=== PATIENT | female | born 1975 | race African-American/Black ===

== ENCOUNTER → 2019-08-18 | Emergency (ER) | payer OTHER ==
[2019-08-18 00:52] VITALS: BP 163/108
--- NOTE | 2019-08-18 07:56 | EKG ---
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1975 Requested By: Hemal Chatman Order Number: [id number] MD: Shay Pickering Measurements Intervals [place] Rate: 85 P: 45 DC: 153 QRS: -23 QRSD: 77 T: -9 QT: 403 QTc: 480 Interpretive Statements Sinus rhythm Probable left atrial enlargement Left ventricular hypertrophy Inferior infarct, age indeterminate Lateral leads are also involved Compared to ECG 04/14/2008 01:38:47 Electronically Signed On 08-18-2019 7:56:02 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
== END ==
LOC: ER 00:50
DX: R20.2 Paresthesia of skin (principal)

== ENCOUNTER 2020-03-07 05:17 | Emergency (ER) | payer OTHER ==
[~2020-03-07] VITALS: Ht 175.3 cm; Wt 97.5 kg
[2020-03-07 05:40] LABS: BASOPHILS 2.2 % (0.0-2.0); EOSINOPHILS 1.2 % (0.0-3.0); LYMPHOCYTES 33.6 % (24.0-44.0); MCHC 33.3 g/dL (28.0-37.0); MCV 84.2 fL (80.0-100.0); MONOCYTES 5.2 % (1.0-8.0); PLATELET COUNT 380 thou/uL (150-400); POLYS 57.8 % (36.0-66.0); RBC 4.27 mil/uL (4.20-5.00); RDW 15.6 % (10.5-14.5); WBC 6.9 thou/uL (4.0-11.0)
[2020-03-07 05:43] LABS: ANION GAP 12 mmol/L (7-16); BUN 5 mg/dL (7-18); CALCIUM 8.6 mg/dL (8.5-10.1); CHLORIDE 100 mmol/L (98-107); CO2 25 mmol/L (21-32); GLUCOSE 108 mg/dL (74-106); POTASSIUM 3.7 mmol/L (3.5-5.1); SODIUM 137 mmol/L (136-145)
[2020-03-07] MEDS ORDERED: NOHOMEMEDICATIONS (05:48)
[2020-03-07 05:52] LABS: TROPONIN-I <0.06 ng/mL (<0.06)
[2020-03-07 06:37] VITALS: BP 158/113
--- NOTE | 2020-03-07 08:13 | EKG ---
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: : 1975 Requested By: Darian Collins Order Number: [id number] MD: Shay Pickering Measurements Intervals [place] Rate: 106 P: 36 OR: 161 QRS: -20 QRSD: 74 T: -6 QT: 345 QTc: 459 Interpretive Statements Sinus tachycardia Left ventricular hypertrophy Inferior infarct, age indeterminate Anterior Q waves, possibly due to LVH Compared to ECG 08/18/2019 02:06:02 Q waves now present Sinus rhythm no longer present Myocardial infarct finding still present Electronically Signed On 03-07-2020 8:13:30 CDT by Shay Pickering [email or web address] <ELECTRONICALLY SIGNED> By: Shay Pickering MD 03/07/20812 3 3 Shay Pickering MD /EPI
== END 2020-03-07 06:51 | disposition home or self-care (01) ==
LOC: ER 05:17
PROVIDERS: Emergency Medicine
DX: R07.89 Other chest pain (principal); R06.02 Shortness of breath; R42 Dizziness and giddiness; I10 Essential (primary) hypertension; Z98.51 Tubal ligation status; Z88.8 Allergy status to other drugs, medicaments and biological substances